=== PATIENT | male | born 1950 | race Caucasian/White ===

== ENCOUNTER → 2019-05-27 | Outpatient (CLI) | payer OTHER ==
[~2019-05-27] VITALS: Ht 193 cm; Wt 102.1 kg
[~2019-05-27] MED LIST: ASPIR 8181 MG PO; AUGMENTIN 875875 MG PO; BUPRENORPHINE HC8 MG SUBLING; FISH OIL 1,001000 M2 PO; FLOMAX0.4 MG PO; LISINOPRIL10 MG PO; MULTIVITAMINS1 EAC7 PO; OMEPRAZOLE40 MG PO
--- NOTE | 2019-05-27 10:37 | P ---
[facility] [place] [address] PROCEDURE REPORT Name: SENG ABDULLAHI Room #: REG [facility]#: [id number] Admission: 05/27/19 Attend Phys: Florencio Patel MD Discharge: Date of : 54 Report #: [id number] THIS REPORT FOR: //name// CC: Florencio Montano MD DATE OF SERVICE: 05/27/2019 OUTPATIENT COLONOSCOPY REPORT BRIEF HISTORY: The patient is a 69-year-old male for average risk screening colonoscopy. PREOPERATIVE DIAGNOSIS: Average risk screening colonoscopy. POSTOPERATIVE DIAGNOSES: 1. Multiple colon polyps. 2. Moderate sigmoid diverticulosis coli. MEDICATIONS: Deep sedation with propofol per anesthesia. SPECIMENS: 1. Polyp from 80 cm. 2. Proximal ascending colon polyp. 3. Transverse colon polyps x 2. 4. Distal transverse colon polyp. 5. Splenic flexure polyp. 6. Polyp at 60 cm. 7. Polyp at 30 cm. ESTIMATED BLOOD LOSS: 3 mL. PROCEDURE: Colonoscopy to cecum and terminal ileum with snare polypectomy and biopsy. FINDINGS: Prior to propofol sedation, procedure of colonoscopy discussed with the patient as well as potential risks and its complications. He indicates he understands and desires to proceed. DESCRIPTION OF PROCEDURE: With the patient in left lateral decubitus position, digital examination was completed, which revealed no abnormalities. Subsequently, the Olympus video colonoscope was introduced in the rectum, advanced under direct vision to the cecum. Done with minimal difficulty. The cecum was identified by the ileocecal valve and the appendiceal orifice. I was able to visualize the distal segment of terminal ileum, which was inspected and [facility] [address] [place] [address] PROCEDURE REPORT Name: SENG ABDULLAHI [facility] Room #: REG [facility].#: [id number] Admission: 05/27/19 Attend Phys: Florencio Patel MD Discharge: Date of : 54 Report #: [id number] noted to be unremarkable. At that point, the scope was slowly withdrawn and careful circumferential views were obtained. Upon slow withdrawal of the scope, the prep was good. The mucosa was within normal limits, normal vascular pattern, normal light reflex. As we withdrew the scope, 4-5 mm sessile polyp was seen in the proximal ascending colon in the retroflexed position and removed with biopsy forceps. The scope was further withdrawn at the hepatic flexure, two 5 mm sessile polyps were seen and removed with a cold snare. In addition, a few scattered diverticula were seen at the hepatic flexure. In addition, a few scattered diverticula were seen at the hepatic flexure as well. The scope was further withdrawn in the distal transverse colon, a diminutive polyp was seen and removed with biopsy forceps. At the splenic flexure, another diminutive polyp was seen and removed with biopsy forceps. At 80 cm, a 5 mm sessile polyp was seen and removed with a cold snare polypectomy. At 60 cm, a diminutive polyp was seen and removed with biopsy forceps. At 30 cm, another diminutive polyp was seen and removed with biopsy forceps. In addition, there was moderate diverticular disease of the sigmoid colon without endoscopic evidence of diverticulitis. The scope was withdrawn in the rectum and upon retroflexion, no abnormalities were seen. Scope was withdrawn. The patient tolerated the procedure well. CONDITION OF THE PATIENT UPON DISCHARGE: Following procedure, the patient drowsy and arousable. He will be discharged home when fully ambulatory. INSTRUCTIONS TO THE PATIENT AND FAMILY AT THE TIME OF DISCHARGE: The patient was found to have 8 polyps. The polyps all had an adenomatous appearance. We will follow up on pathology, but due to the number of polyps, we have him return in 3 years for high risk screening colonoscopy. I suggest high fiber diet for the diverticular disease. He will return to care of Dr. Luis Montano and return to see me as needed. Last colonoscopy was 10 years ago. Withdrawal time from the cecum including all the polypectomies was 29 minutes 33 seconds. <ELECTRONICALLY SIGNED> By: Florencio Patel MD 05/27/19 1037 [id number] Florencio Patel MD /nt
--- NOTE | 2019-05-28 13:07 | PATH ---
[facility] [place] [address] PATHOLOGY RPT PROCEDURE Name: ENRICO MARTÍNEZ Room #: REG [facility].#: [id number] Admission: 05/27/19 Date of : 54 Discharge: Report #: [id number] Path Case #: [id number] [facility] Accession Number: [id number] . 01 Material submitted: . PART A: colon - POLYP AT 80CM PART B: colon - POLYP AT PROXIMAL ASCENDING COLON. Modifiers: proximal, ascending PART C: colon - POLYP AT PROXIMAL TRANSVERSE COLON X2. Modifiers: proximal, transverse PART D: colon - POLYP AT DISTAL TRANSVERSE COLON. Modifiers: distal, transverse PART E: splenic flexure - POLYP AT SPLENIC FLEXURE PART F: colon - POLYP AT 60CM PART G: colon - POLYP AT 30CM . 01 Clinical history: . Screening, colon polyps . 02 Diagnosis: A. Colon, 80 cm, biopsy: - Adenomatous polyp. . B. Colon, proximal ascending, biopsy: - Adenomatous polyp. . C. Colon, proximal transverse, biopsy: - Adenomatous polyps, two. . D. Colon, distal transverse, biopsy: - Adenomatous polyp. . E. Colon, splenic flexure, biopsy: - Adenomatous polyp. . F. Colon, 60 cm, biopsy: - Hyperplastic polyp. . G. Colon, 30 cm, biopsy: - Adenomatous polyp. . (SKM:gladis; 05/28/2019) [facility]/05/28/2019 . 02 Electronically signed: . Luis Jensen MD, Pathologist NPI- [id number] [address] [address] PATHOLOGY RPT PROCEDURE Name: ENRICO MARTÍNEZ [facility] Room #: REG [facility]#: [id number] Admission: 05/27/19 Date of : 54 Discharge: Report #: [id number] Path Case #: [id number] . 01 Gross description: . A. The specimen is received in formalin, labeled "Enrico Martínez, polyp at 80 cm", is a nicole rubbery sessile polyp measuring 0.8 x 0.2 x 0.2 cm, inked black and serially sectioned. The specimen is entirely submitted in A1. . B. The specimen is received in formalin, labeled "Enrico Martínez, polyp at proximal ascending colon", is a nicole rubbery polyp measuring 0.3 cm in greatest dimension. The specimen is entirely submitted in B1. . C. The specimen is received in formalin, labeled "Enrico Martínez, polyp at proximal transverse colon BX 2", are two nicole rubbery sessile polyp measuring 0.6 x 0.3 x 0.2 cm (inked black and bisected) and 0.3 cm in greatest dimension. The specimen is entirely submitted in C1. . D. The specimen is received in formalin, labeled "Martínez Enrico, polyp at distal transverse colon", is a nicole rubbery sessile polyp measuring 0.3 cm in greatest dimension. The specimen is entirely submitted in D1. . E. The specimen is received in formalin, labeled "Martínez Enrico, polyp at splenic flexure", is a nicole rubbery sessile polyp measuring 0.2 cm. The specimen is entirely submitted in E1. . F. The specimen is received in formalin, labeled "Singh Martínezothy, polyp at 60 cm", is an irregular fragment of nicole rubbery tissue measuring 0.8 cm in maximum dimension. The specimen is entirely submitted in F1. . G. The specimen is received in formalin, labeled "Mauricio Enrico, polyp at 30 cm", is a nicole rubbery sessile polyp measuring 0.2 cm in greatest dimension. The specimen is entirely submitted in G1. ([facility]; 05/27/2019) [facility]/SHS . 02 Pathologist provided ICD-10: D12.6, D12.2, D12.3, K63.5 . 02 CPT . 995727, 720678, 004347, 828676, 941029, 056527, [id number] Specimen Comment: A courtesy copy of this report has been sent to Specimen Comment: [phone], . Specimen Comment: Report sent to and Performed at: [address], [place], [place] [id number] MD Kirby Suero MD Phone: [phone] Performed at: 02 [facility] [address] [place] [address] PATHOLOGY RPT PROCEDURE Name: ENRICO MARTÍNEZ [facility] Room #: REG [facility].#: [id number] Admission: 05/27/19 Date of : 54 Discharge: Report #: [id number] Path Case #: [id number] [address] [place], [place] [id number] MD Becki Mariano MD Phone: [phone]
== END | disposition home or self-care (01) ==
LOC: GI 07:20
DX: Z12.11 Encounter for screening for malignant neoplasm of colon (principal); D12.2 Benign neoplasm of ascending colon; D12.3 Benign neoplasm of transverse colon; D12.4 Benign neoplasm of descending colon; K63.5 Polyp of colon; K57.30 Diverticulosis of large intestine without perforation or abscess without bleeding; K21.9 Gastro-esophageal reflux disease without esophagitis; I10 Essential (primary) hypertension; G47.30 Sleep apnea, unspecified; Z98.52 Vasectomy status; Z87.891 Personal history of nicotine dependence; Z98.890 Other specified postprocedural states; Z79.899 Other long term (current) drug therapy; Z79.82 Long term (current) use of aspirin
CPT/HCPCS: 62110; 62900